=== PATIENT | female | born 2000 | race Caucasian/White ===

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

== ENCOUNTER 2021-10-26 16:45 | Emergency (ER) | payer OTHER, SELFPAY | END 2021-10-26 17:45 | disposition home or self-care (01) | LOC: NAV ERS 16:45 | DX: J01.90 Acute sinusitis, unspecified (principal); K05.10 Chronic gingivitis, plaque induced; G43.909 Migraine, unspecified, not intractable, without status migrainosus; Z79.899 Other long term (current) drug therapy | CPT/HCPCS: 99283 ==